=== PATIENT | male | born 1980 | race African-American/Black ===

== ENCOUNTER 2017-07-09 14:38 | Emergency (ER) | payer SELFPAY ==
[~2017-07-09 14:38] MED LIST: NAPR500 PO
[2017-07-09 14:41] VITALS: BP 141/90; PULSE 111; RESP 20; TEMP 97.6; O2SAT 99
[2017-07-09] MEDS ORDERED: LIDOCAINE HCL 1% PF 30 ML VIAL ONE (15:05)
[2017-07-09] MEDS ORDERED: LIDOCAINE 1%/EPINEPHrine 1:100,000 SOLN 20 ML VIAL INFIL ONE (15:15)
--- NOTE | 2017-07-09 15:38 | PD ---
HPI Chief Complaint: Injury Time Seen by Provider: 15:01 Travel History International Travel<30 days: No Contact w/Intl Traveler<30days: No Traveled to known affect area: No History of Present Illness HPI 37-year-old male presents to the emergency room for evaluation of abscess to his left hand that started 2 days ago. States a little over one week ago he had a splinter in his left hand. He tried to remove it without success. States it suddenly expanded enlarged 2 days ago. He has not taken anything or done anything for symptoms. Reports significant pain. Denies fever, chills, nausea, vomiting. History of MRSA. Unknown last tetanus. PFSH Past Medical History Arthritis: No Asthma: No Autoimmune Disease: No Blood Disorders: No Anxiety: No Depression: No Heart Rhythm Problems: No Cancer: No Cardiovascular Problems: No High Cholesterol: No Chemotherapy: No Chest Pain: No Congestive Heart Failure: No COPD: No Cerebrovascular Accident: No Diabetes: No Diminished Hearing: No Endocrine: No Gastrointestinal Disorders: No GERD: No Glaucoma: No Genitourinary: No Headaches: No Hepatitis: No Hiatal Hernia: No Hypertension: No Immune Disorder: No Kidney Stones: No Musculoskeletal: No Neurologic: No Psychiatric: No Respiratory: No Immunizations Current: No Myocardial Infarction: No Radiation Therapy: No Renal Failure: No Seizures: No Sickle Cell Disease: No Sleep Apnea: No Thyroid Disease: No Ulcer: No Past Surgical History Abdominal Surgery: No AICD: No Cardiac Surgery: No Ear Surgery: No Endocrine Surgery: No Eye Surgery: No Genitourinary Surgery: No Gynecologic Surgery: No Joint Replacement: No Neurologic Surgery: No Oral Surgery: No Pacemaker: No Thoracic Surgery: No Social History Alcohol Use: No Tobacco Use: Yes (5 PER DAY) Substance Use: No Allergies-Medications (Allergen,Severity, Reaction): Coded Allergies: cephalexin (Unverified Allergy, Severe, 02/17/17) metronidazole (Unverified Allergy, Severe, 02/17/17) *MDRO Multi-Drug Resistant Organism (Verified Allergy, Unknown, 03/11/15) MRSA Reported Meds & Prescriptions Reported Meds & Active Scripts Active Bactrim DS (Sulfamethoxazole-Trimethoprim) 800-160 Mg Tab 1 Tab PO BID Naprosyn (Naproxen) 500 Mg Tab 500 Mg PO BID PRN Review of Systems Except as stated in HPI: all other systems reviewed are Neg Physical Exam Narrative GENERAL: Well-nourished, well-developed male in no acute distress. Afebrile. Ambulatory. SKIN: Focused skin assessment warm/dry. There is an indurated area in the left volar hand just above the hypothenar eminence which measures about 3 cm in diameter. It is fluctuant but there is no pointing or drainage. There is a zone of inflammation around it but no lymphangitis. HEAD: Normocephalic. EYES: No scleral icterus. No injection or drainage. NECK: Supple, trachea midline. No JVD or lymphadenopathy. CARDIOVASCULAR: Regular rate and rhythm without murmurs, gallops, or rubs. RESPIRATORY: Breath sounds equal bilaterally. No accessory muscle use. MUSCULOSKELETAL: No cyanosis. Moderate edema of the left hand. No significant induration. Full range of motion of left hand. 2+ radial pulse. Less than 2 second capillary refill distally. Data Data Last Documented VS Vital Signs Date Time Temp Pulse Resp B/P (MAP) Pulse Ox O2 Delivery O2 Flow Rate FiO2 07/09/17 15:46 72 16 98 Room Air 07/09/17 14:41 97.6 Orders Orders Lidocai-Epi 1%-1:100,000 Inj (Xylocaine- (07/09/17 15:15) Lidocaine Pf 1% Inj (Xylocaine-Mpf 1% In (07/09/17 15:05) Acetamin-Hydrocod 325-5 Mg ([place] 5-325 (07/09/17 15:45) Clindamycin Inj (Cleocin Inj) (07/09/17 15:45) Tetanus/Diphtheria Tox Adult (Tetanus/Di (07/09/17 15:45) Sulfamet-Trimeth Ds 800-160 Mg (Bactrim (07/09/17 15:45) Wound Culture And Gram Stain (07/09/17 15:41) Hand, Limited (2vws) (07/09/17 ) Ed Discharge Order (07/09/17 16:56) MDM Medical Decision Making Medical Screen Exam Complete: Yes Emergency Medical Condition: Yes Medical Record Reviewed: Yes Differential Diagnosis Abscess, folliculitis, cellulitis, deep tissue infection Narrative Course 37-year-old male presents to the emergency room for evaluation of an abscess to his left hand that started 2 days ago. States he thinks it's from a splinter he got about one week ago. No systemic signs of infection. Vital signs stable. Physical exam reveals a large area of fluctuance on the left hand, just above the hypothenar eminence. Infection does not appear to be deep as there is no significant induration. There is mild to moderate soft edema. Patient has full range of motion of the left hand and it is neurovascularly intact with 2+ radial pulses and less than 2 second capillary refill distally. Abscess was drained, see procedure note for details. X-ray shows cortical destruction of the fourth distal phalanx. Clinical correlation is not consistent with osteomyelitis; patient has history of fracturing that finger at 18 years old and it has never healed properly. Also, not the correct location for osteomyelitis. Patient given first dose of clindamycin and Bactrim in the emergency room. He was also updated on tetanus. Wound culture sent. Discharged with Bactrim and instructions to return in 2 days for wound recheck. He understands and agrees to plan. Procedures Procedure Narrative INCISION AND DRAINAGE OF ABSCESS: The area was prepped and was sterilely draped. A subcutaneous wheal of 1% lidocaine with a total number 4 mL was used to anesthetize the area properly. A number 11 scalpel was used to make a 1 cm incision across the area of the abscess. The abscess was drained, complex loculations were broken down, and irrigated with normal saline. Cultures were obtained. Quarter inch iodoform packing was placed in the wound. Sterile dressing applied. Patient advised to have packing removed in two days. Diagnosis Primary Impression: Abscess of left hand Referrals: Primary Care Physician Additional Instructions: Rest and drink plenty of fluids. Take Bactrim as directed, until gone. Return to the emergency room in 2 days for wound recheck and to have packing removed. If it falls out before, this is okay. Follow up with a primary care physician. Med/Other Pt SpecificInfo: Prescription(s) given Scripts Sulfamethoxazole-Trimethoprim (Bactrim DS) 800-160 Mg Tab 1 TAB PO BID for Infection, #20 TAB 0 Refills Prov: Shivani Lopes MD 07/09/17 Disposition: 01 DISCHARGE HOME Condition: Stable Urmila Eric Jul 09, 2017 15:38
[2017-07-09] MEDS ORDERED: TETANUS/DIPHTHERIA TOXOID ADULT 0.5 ML VIAL IM ONE (15:45)
[2017-07-09] MEDS ORDERED: ACETAMINOPHEN/HYDROcodone 325 MG/5 MG TAB PO ONE (15:45)
[2017-07-09] MEDS ORDERED: SULFAMETHOXAZOLE-TRIMETHOPRIM DS 800-160 MG TAB PO ONE (15:45)
[2017-07-09] MEDS ORDERED: CLINDAMYCIN PHOS 900 MG/6 ML VIAL IM ONE (15:45)
[2017-07-09 15:46] VITALS: PULSE 72; RESP 16; O2SAT 98
[2017-07-09] MEDS ORDERED: BACT800T5 PO (15:48)
--- NOTE | 2017-07-09 16:48 | RADRPT ---
EXAM DATE/TIME: 07/09/2017 16:32 [facility] COMPARISON: CHEST PA & LAT, March 11, 2015, 13:55. INDICATIONS : Possible osteomyelitis from hand infection due to splinter. MEDICAL HISTORY : None. SURGICAL HISTORY : None. ENCOUNTER: Initial ACUITY: 1 week PAIN SCORE: 10/10 LOCATION: Left 4th Digit. FINDINGS: The examination demonstrates rarefaction of bone and cortical disruption involving the distal phalanx of the fourth digit. In the appropriate clinical setting this would be consistent with osteomyelitis . The remainder of the bony structures are within normal limits. CONCLUSION: Cortical destruction of the distal portion of the fourth distal phalanx. Thony Mcfarland MD on July 09, 2017 at 16:44 Board Certified Radiologist. This report was verified electronically.
== END 2017-07-09 17:31 | disposition home or self-care (01) ==
LOC: NEPK 14:38
DX: L02.512 Cutaneous abscess of left hand (principal); F17.200 Nicotine dependence, unspecified, uncomplicated; Z88.8 Allergy status to other drugs, medicaments and biological substances
CPT/HCPCS: 10060; 73120; 87070; 87185; 90471; 90714; 96372